=== PATIENT | male | born 1990 | race African-American/Black ===

== ENCOUNTER 2017-10-08 11:27 | Emergency (ER) | payer BC ==
[~2017-10-08] VITALS: Ht 167.6 cm; Wt 98.1 kg
[2017-10-08] MEDS ORDERED: PREDNISONE50 MG PO (11:41)
[2017-10-08] MEDS ORDERED: NAPROSYN500 MG PO (11:41)
[2017-10-08 12:03] VITALS: BP 119/76
== END 2017-10-08 12:04 | disposition home or self-care (01) ==
LOC: EME 11:27
DX: S63.91XA Sprain of unspecified part of right wrist and hand, initial encounter (principal); M70.841 Other soft tissue disorders related to use, overuse and pressure, right hand; X50.3XXA Overexertion from repetitive movements, initial encounter; Y93.89 Activity, other specified; Y99.0 Civilian activity done for income or pay; J45.909 Unspecified asthma, uncomplicated
CPT/HCPCS: 99281; 99283; J7512